=== PATIENT | male | born 1940 | race Caucasian/White ===

== ENCOUNTER 2019-04-14 17:46 | Inpatient (IN) ==
--- NOTE | 2019-04-14 18:07 | PROVIDER DOCUMENTATION ---
HPI-General Adult - General Stated Complaint: syncope, hypotension Time Seen by Provider: 04/14/19 17:55 Source: patient, EMS Allergies/Adverse Reactions: Patient Allergies Allergy/AdvReac Type Severity Reaction Status Date / Time No Known Allergies Allergy Verified 04/14/19 18:06 Home Medications: Home Medication List Medication Instructions Recorded Confirmed Last Taken Type Isosorbide Mononitrate E.r. [Imdur] 60 mg PO DAILY 07/10/13 04/14/19 07/10/13 07:00 History Ranolazine E.r. [Ranexa] 500 mg PO BID 07/10/13 04/14/19 07/10/13 07:00 History Calcitriol [Rocaltrol] 0.25 microgm PO DIRECTED 03/13/16 04/14/19 03/11/16 09:00 History Midodrine [Proamatine] 5 mg PO TID 03/13/16 04/14/19 03/13/16 09:00 History Montelukast Sodium [Singulair] 10 mg PO QHS 03/13/16 04/14/19 03/12/16 21:00 History Pantoprazole Sodium [Protonix] 40 mg PO QHS 03/13/16 04/14/19 03/12/16 21:00 History Levothyroxine [Synthroid] 50 microgm PO DAILY 04/14/19 04/14/19 Unknown History Losartan Potassium [Cozaar] 1 tab PO DAILY 04/14/19 04/14/19 Unknown History Metoprolol Succinate E.r. [Toprol 100 mg PO DAILY 04/14/19 04/14/19 Unknown History Xl] Ondansetron HCl 4 mg PO Q6H PRN PRN 04/14/19 04/14/19 Unknown History Potassium Chloride 10 meq PO DAILY 04/14/19 04/14/19 Unknown History Rosuvastatin Calcium 20 mg PO DAILY 04/14/19 04/14/19 Unknown History Torsemide [Demadex] 20 mg PO BID 04/14/19 04/14/19 Unknown History - History of Present Illness -Gen Adult Nature of Presenting Problems: Presents to the EC after syncopal episode. No family at bedside but EMS states that family told them that he was sitting in his chair and had a syncopal episode. Unknown how long this lasted for. Family told EMS that after this happened patient was not acting like himself. Patient is a vague hsitorian and states that he only had some chest pain before this incident. He does have a significant cardiac history and has had 5 CABG. [address]anner [place] Dr Weiss in . Patient was hypotensive the 70s on EMS arrival and SpO2 was in the 70s on room air and patient takes no home O2. No family at bedside at this time. Review of Systems - Adult - REVIEW OF SYSTEMS - ADULT Constitutional: reports: see HPI Eyes: reports: no symptoms reported Ears, Nose, Mouth & Throat: reports: no symptoms reported Cardiovascular: reports: see HPI, chest pain Respiratory: reports: no symptoms reported, see HPI, shortness of breath Gastrointestinal: reports: no symptoms reported Genitourinary: reports: no symptoms reported Musculoskeletal: reports: no symptoms reported Integumentary: reports: no symptoms reported Neurological: reports: see HPI, syncope Psychiatric: reports: no symptoms reported Endocrine: reports: no symptoms reported Hematologic/Lymphatic: reports: no symptoms reported Allergic/Immunologic: reports: no symptoms reported All Other Systems: Reviewed and Negative Past History - Adult - PAST MEDICAL HISTORY-ADULT Review of Records: reports: Old Records Reviewed Major Childhood Illnesses: reports: denies history Cardiovascular: reports: CHF, HTN, hyperlipidemia, MA, other (stents + CABG) Respiratory: reports: denies history Gastrointestinal: reports: denies history Obstetrical/Gynecological: reports: denies history Genitourinary: reports: denies history Musculoskeletal: reports: denies history Neurological: reports: denies history Endocrine/Immune: reports: Diabetes Other Conditions: reports: denies history - PRIOR SURGERIES/PROCEDURES Surgical/Procedure History: reports: CABG, cardiac stent - IMMUNIZATION STATUS Childhood Immunizations: See Nurse Assessment Flu Vaccine: See Nurse Assessment - FAMILY HISTORY Family History: reviewed, not pertinent Physical Exam-General - PHYSICAL EXAM-ADULT Initial Vital Signs Reviewed: Yes - CONSTITUTIONAL General Appearance: alert, mild distress - EYES Eyes: PERRL/EOMI - HEAD, EARS, NOSE, MOUTH & THROAT HENMT: normocephalic/atraumatic, moist mucous membranes - NECK Neck: supple, normal inspection - RESPIRATORY Respiratory: chest non-tender, respiratory distress (mild), decreased breath sounds (bilaterally), rales (bilateral bases), increased rate, other (pleurx catheter in place on left lower lung on anterior chest) - CARDIOVASCULAR Cardiovascular: normal peripheral pulses, regular rate, rhythm, no murmur - GASTROINTESTINAL (ABDOMEN) Abdominal Exam: normal bowel sounds, non tender, soft - MUSCULOSKELETAL Back Exam: normal inspection Extremity: normal inspection - SKIN Integumentary: warm/dry, pallor - NEUROLOGIC Neurologic: other (limited verbal responses, attempts to answer questions a ppropriately) Progress - PLAN OF CARE/RESULTS Progress/Plan/Lab Results: Orders Category Date Time Status CHEST-PORTABLE [RAD] Stat Exams 04/14/19 17:[address] HEAD W/O CONTRAST [CT] Stat Exams 04/14/19 17:55 Ordered ABG [RESP] Routine Lab 04/14/19 17:55 Ordered BLOOD CULTURE [BLDCUL] Stat Lab 04/14/19 17:55 Uncollected CBC WITH ELECTRONIC DIFF [HEME] Stat Lab 04/14/19 17:55 Uncollected CK TOTAL [CHEM] Stat Lab 04/14/19 17:55 Uncollected COMPREHENSIVE METABOLIC PANEL [CHEM] Stat Lab 04/14/19 17:55 Uncollected LACTATE, PLASMA [CHEM] Stat Lab 04/14/19 17:55 Uncollected PRO B-NATRIURETIC PEPTIDE Stat Lab 04/14/19 17:55 Uncollected TROPONIN T Stat Lab 04/14/19 17:55 Uncollected URINALYSIS W/POSS RFLX CULT [URINALYSIS] Stat Lab 04/14/19 17:55 Uncollected URINE CULTURE [RM] Stat Lab 04/14/19 17:55 Uncollected Patient signed out to Dr Kendrick pending CT Head and final dispo. Will need admission but unsure if he will require transfer to or stay at [facility]. He does have acute on chronic anemia to 8.4 with his most recent Hgb being many many motnhs ago. His occult was negative. He responded well to a small bolus of fluids initiated by EMS, however BNP is 25k so will need to be cautious. Will also hold off any transfusions at this time given that patient could be more volume overloaded. His troponin is elevated but his EKG is unchanged from 2016. The elevated trop likely 2.2 to BNP and Cr which appears to be at baseline. Given Vanc and Zosyn for PNA on XR. Dr Kendrick to reeval and finalize dispo. Result Diagrams: 04/15/19 05:38 04/15/19 05:38 - XRAY 1 XRAY Study: Chest (HEST-PORTABLE - 04/14/2019 INDICATION: syncope, hypotension COMPARISON: 12/10/2018 FINDINGS: Lung volumes are somewhat low. Stable sternotomy wires. Stable right-sided pacemaker. Heart size is top normal. Pulmonary vascularity appears normal. There is some indeterminate opacification of the left lung base representing a combination of atelectasis, infiltrate, or effusion. IMPRESSION: Left basilar airspace opacity. Electronically signed by Byron Chaidez 04/14/2019 6:37 PM) - CONSULTS/PCP/HOSPITALIST Notification #1 *Consult/PCP/Hospitalist*: d/w Dr Alexandre Time Discussed: 20:02 Consult Disposition: Admit - CHANGE OF SHIFT REPORT (ED Provider) 1 Report Given and Care Transferred to:: Dr Kendrick Time of Transfer: 19:00 Items Pending: CT/MRI Results Departure - Departure Date of Disposition Decision: 04/14/19 Time of Disposition Decision: 20:14 DIAGNOSIS: Acute anemia, Syncope, Congestive heart failure, CKD (chronic kidney disease), Elevated troponin I level, Hypotension Disposition: ADMITTED INPATIENT 09 Certified Medical Emergency: Emergent Condition: Stable - Critical Care Note This patient required my direct & personal management of CC.: Yes Total Time (mins): 65 Critical Care Statement: This patient required my direct personal management to treat or rule out processes, the absence of which, could potentiallly result in sudden, clinically significant life or limb threatening deterioration. Attestation - Physician/ MADHURI Attestation Patient care was provided by Advanced Practice Provider:: No The physician spent face to face time with patient:: Yes Advanced Practice Provider documentation review:: Supervising physician onsite and consulted in the evaluation and care of this patient. The physician did have a face to face encounter with the patient.
[2019-04-14 18:22] LABS: ALLEN TEST NO; BE 5.8 mmoll (-3.0-3.0); BLOOD TYPE ARTERIAL; HCO3-(ACT) 29.5 mmoll (20.0-26.0); O2(CT) 11.2 mL/dL (15.0-23.0); O2HB 96.1 % (95.0-99.0); PCO2(98.6) 40 mmHg (35-45); PO2(98.6) 88 mmHg (60-100); SAMPLE BLOOD; SAO2 99.3 % (95.0-100.0); THB 8.2 g/dL (11.5-17.4); pH(98.6) 7.48 (7.35-7.45)
[2019-04-14 18:23] LABS: MODALITY CANNULA
[2019-04-14 18:25] LABS: BASO# 0.01 X1000 (0.0-0.2); BASO% 0.1 % (0.0-0.8); EOS# 0.08 X1000 (0.0-0.7); EOS% 0.7 % (0.0-10.0); HEMATOCRIT 27.4 % (42.0-52.0); HEMOGLOBIN 8.4 g/dL (14.0-18.0); IMM GRAN# 0.03 X1000 (0.0-0.04); IMM GRAN% 0.3 % (0.0-0.5); LYMPH# 1.11 X1000 (1.2-3.4); LYMPH% 9.5 % (20.5-51.1); MCHC 30.7 g/dL (33-37); MCV 91.3 FL (81-99); MONO# 1.27 X1000 (0.11-0.59); MONO% 10.9 % (1.7-9.3); MPV 11.5 FL (7.4-10.4); NEUT# 9.16 X1000 (1.4-6.5); NEUT% 78.5 % (42.2-75.2); PLT 189 X1000 (130-400); RDW 17.4 % (11.5-14.5); WBC 11.66 X1000 (4.8-10.8)
--- NOTE | 2019-04-14 18:40 | Diag Imaging Result Doc PS360 ---
CHEST-PORTABLE - 04/14/2019 INDICATION: syncope, hypotension COMPARISON: 12/10/2018 FINDINGS: Lung volumes are somewhat low. Stable sternotomy wires. Stable right-sided pacemaker. Heart size is top normal. Pulmonary vascularity appears normal. There is some indeterminate opacification of the left lung base representing a combination of atelectasis, infiltrate, or effusion. IMPRESSION: Left basilar airspace opacity. Electronically signed by Byron Chaidez 04/14/2019 6:37 PM
[2019-04-14 18:44] LABS: ALB/GLOB RATIO 0.8; ALBUMIN 2.7 g/dL (3.5-5.0); CALCIUM 8.4 mg/dL (8.8-10.2); CREATININE 2.2 mg/dL (0.7-1.2); TOTAL BILIRUBIN 1.09 mg/dL (0.20-1.00); TOTAL PROTEIN 6.1 g/dL (6.3-8.3)
[2019-04-14 18:52] LABS: URINE SOURCE CATH
[2019-04-14 19:00] LABS: BILIRUBIN URINE NEGATIVE (NEGATIVE); BLOOD URINE NEGATIVE (NEGATIVE); COLOR YELLOW; GLUCOSE URINE NEGATIVE (NEGATIVE); KETONE URINE NEGATIVE (NEGATIVE); LEUKOCYTES URINE NEGATIVE (NEGATIVE); NITRITE URINE NEGATIVE (NEGATIVE); PH URINE 5.5; PROTEIN URINE 30 mg/dL (NEGATIVE); SP GRAVITY URINE 1.019; TURBIDITY URINE HAZY (CLEAR); UROBILINOGEN URINE 4 mg/dL (NORMAL)
[2019-04-14] MEDS ORDERED: ZOSYN 3.375 GM in NS 50 ML IV SCH (19:00)
[2019-04-14] MEDS ORDERED: VANCOMYCIN 1 GM/NS 1 GM/250 ML IVPB IV SCH (19:00)
[2019-04-14 19:02] LABS: UR EPITHELIAL CELLS <10 /HPF (<10); URINE BACTERIA NEGATIVE /HPF; URINE RBC <10 /HPF (<10); URINE WBC <10 /HPF (<10)
--- NOTE | 2019-04-14 19:45 | Diag Imaging Result Doc PS360 ---
CT HEAD W/O CONTRAST - 04/14/2019 INDICATION: syncope, hypotension COMPARISON: None FINDINGS: There is moderate diffuse cerebral atrophy. There is advanced cerebral white matter chronic microvascular ischemia. No intracranial mass or hemorrhage. The skull is intact. The sinuses, mastoids, and middle ears are clear. There is advanced calcified vascular disease diffusely. IMPRESSION: No acute process. This exam was performed using automated exposure control, adjustment of mA or kV according to patient size, and/or use of iterative reconstruction technique Electronically signed by Byron Chaidez 04/14/2019 7:43 PM
[2019-04-14] MEDS ORDERED: ZOFRAN PO PRN (21:59)
[2019-04-14] MEDS ORDERED: ZOFRAN IV PRN (21:59)
[2019-04-14] MEDS: DOXYCYCLINE PO SCH (22:14)
[2019-04-14] MEDS: RANEXA PO SCH (22:14)
[2019-04-14] MEDS: PROTONIX PO SCH (22:14)
[2019-04-14] MEDS: TYLENOL PO PRN (22:14)
[2019-04-14] MEDS: DEMADEX PO SCH (22:14)
[2019-04-14] MEDS: ASPIRIN PO SCH (22:14)
[2019-04-14] MEDS: ROCEPHIN 1 GM in NS 50 ML IV SCH (22:15)
[2019-04-14] MEDS: LOVENOX SUBQ SCH (22:15)
--- NOTE | 2019-04-14 22:21 | HISTORY AND PHYSICAL ---
REASON FOR ADMISSION: Frequent passing out spells today. Mr. Oren Amaya is an 79-year-old male with past medical history of carotid artery disease status post a total of 13 stents, CABG, a defibrillator placement, total hip replacement, pacemaker insertion, also has a history of type 2 diabetes and systolic heart failure. He also has a history of chronic kidney disease stage 3. Patient comes in today reluctantly at the behest of his daughter and after having several complete and also incomplete spells while at home today totaling about 3 to 4 episodes passing out. informed me that this has been an ongoing problem for the last 4 years. She reports that he has been having frequent spells of nearly passing out on a few occasions completely passing out over the last 1 month. She states on few occasions have called EMS and the patient adamantly refused to go to the ER. Earlier today he was at home and down he slumped and almost passed out only to quickly recuperate. For the 3rd time this happened the patient was sitting his walker and again slumped and was transiently out for a few seconds. Also on that time started coughing and had a low-grade temperature of 99 degrees . The patient has a longstanding history of chronic dyspnea especially with exertion and reports over the last 2 days his dyspnea with exertion has gotten slightly worse. He also has a history of chronic chest pain at the previous site where he had defibrillator and intermittent with no specific aggravating or relieving factors and states that neither the frequency, duration or intensity has worsened. reports that patient has chronic orthopnea but no PND. The patient denies any palpitations, does admit to having some nausea occasionally. No vomiting, diarrhea or blood loss recently. REVIEW OF SYSTEMS: Notable for chronic dysuria, hesitancy, nocturia, patient denies any abdominal pains whatsoever. SURGICAL HISTORY: See above. PAST MEDICAL HISTORY: See above. FAMILY HISTORY: Notable for heart disease in both parents no diabetes. SOCIAL HISTORY: Does not smoke, drink or use drugs, lives with . ALLERGIES: No allergies. HOME MEDICATIONS: Protonix 40 mg at bedtime, Singulair 10 mg daily, Cozaar 100 mg daily, torsemide 20 mg b.i.d., Imdur 60 mg daily, Zofran 4 mg q.6 p.r.n., potassium chloride 10 mEq daily, Ranexa 500 mg b.i.d., midodrine 5 mg t.i.d., 0.25 mg daily, Crestor 20 mg daily, Synthroid 50 mcg daily, Toprol XL 100 mg daily. LABORATORY WORK: White count 12,000, hemoglobin and hematocrit 8 and 24, platelets 189,000 with 78% neutrophils. Sodium 134, BUN 46, creatinine 2.2, glucose 215, calcium 8.4, troponin 0.201 with a proBNP of 25,000, albumin 2.5. Urinalysis only 30 mg of protein. Blood gas pH 7.48, pCO2 40, PO2 80 this was done on 4 L. Chest film showed left lower lobe infiltrate. CT head showed no acute cardiopulmonary process. EKG is not available for review at this time and I will order it now. PHYSICAL EXAMINATION: VITAL SIGNS: Blood pressure is 109/51, heart rate is 60, respiratory 20, temperature is 98.1 is 100% on 4 L. He is a elderly obese man who is not in acute distress laying comfortably on stretcher. He is alert and oriented to the time normal mood and affect. Head is normocephalic, atraumatic. PERRLA. EOMI. He is anicteric, not pale. Cranial nerves 2 through 12 are intact. ENT exam is grossly normal. Some cyanosis. NECK: Supple. No JVD or hepatojugular reflux noted, no bruit. CHEST: Surprisingly clear to auscultation with decreased entry in the bases. CARDIOVASCULAR: First and sounds heard. No gallops, murmurs, rubs, regular. ABDOMEN: Protuberant, soft, nontender. Bowel sounds are hypoactive. RECTAL: Deferred at this time. EXTREMITIES: 2+ pitting edema in his lower extremities. Distal pulse volumes are slightly diminished in all extremities more so on the lower extremities. No clubbing or peripheral cyanosis. NEURO: No gross focal deficits, no asterixis. SKIN: Intact no breakdown, lesion, erythema, skin exam is grossly normal. ASSESSMENT: 1. Recurrent syncope/presyncopal episodes. Very likely related to hypotension as per 's admission later. She reports that most of the time he has had these spells with blood pressure upper numbers usually lower 90s and 80s. This can also be due to underlying ischemia. 2. Left lower lobe pneumonia. 3. Coronary artery disease. 4. Chronic systolic heart failure. 5. Hypertensive heart and kidney disease. 6. Chronic kidney disease stage 4. 7. Type 2 diabetes probably uncontrolled. 8. Hyperlipidemia. 9. Hypothyroidism. PLAN: Strongly recommend modification of the doses of his medications i.e. I have taken liberty of cutting down losartan to 50 mg daily and he may require a lower dose of torsemide maybe to once daily as opposed to twice daily. The fact that the patient is taking midodrine suggests to me that he tends to run low blood pressure and I do think that cutting back some of his blood medications that can affect his blood pressure may be the most reasonable step especially since he is having recurrent spells of presyncope and syncope. I will defer to Dr. Efrain Madrigal to decide if he wants to pursue echocardiogram being that the patient according to the family has seen Dr. Weiss frequently. Continue serial cardiac enzymes. Due to the fact the patient has not seen his primary care physician in a while I will order some basic labs, TSH, A1c, lipid panel, PSA will also be ordered due to the fact patient has frequent nocturia. In addition to this start patient alpha blockers I will leave to Dr. Efrain Madrigal. Anemia workup was also ordered and amongst other things. Also start patient on baby aspirin since he has strong history of cardiac disease. cc: Ambrose Madrigal MD [facility] DIVISIONConrad
--- NOTE | 2019-04-14 22:34 | EKG Report ---
Test Performed on : 04/14/2019 9:02:29 PM Test Reason : syncope Blood Pressure : / mmHG Vent. Rate : 060 BPM Atrial Rate : 060 BPM P-R Int : 130 ms QRS Dur : 182 ms QT Int : 622 ms P-R-T Axes : 083 264 145 degrees QTc Int : 622 ms Atrial-paced rhythm Right bundle branch block Inferior infarct (cited on or before 14-APR-2019) Anterior infarct (cited on or before 14-APR-2019) T wave abnormality, consider lateral ischemia Abnormal ECG When compared with ECG of 14-APR-2019 17:53, (Unconfirmed) Electronic atrial pacemaker has replaced Sinus rhythm. Serial changes of Anterior infarct present Unconfirmed Result
[2019-04-14 23:18] LABS: RETIC% 2.24 % (0.8-2.1); RETIC-HE 24.3 PG (28.2-36.6)
[2019-04-15 06:08] LABS: BASO# 0.01 X1000 (0.0-0.2); BASO% 0.1 % (0.0-0.8); EOS% 4.4 % (0.0-10.0); HEMATOCRIT 28.1 % (42.0-52.0); HEMOGLOBIN 8.6 g/dL (14.0-18.0); IMM GRAN# 0.02 X1000 (0.0-0.04); IMM GRAN% 0.2 % (0.0-0.5); LYMPH# 0.89 X1000 (1.2-3.4); LYMPH% 9.7 % (20.5-51.1); MCH 27.9 PG (27-31); MCHC 30.6 g/dL (33-37); MCV 91.2 FL (81-99); MONO# 0.96 X1000 (0.11-0.59); MONO% 10.5 % (1.7-9.3); MPV 11.9 FL (7.4-10.4); NEUT# 6.89 X1000 (1.4-6.5); NEUT% 75.1 % (42.2-75.2); PLT 186 X1000 (130-400); RBC 3.08 XMIL (4.7-6.1); RDW 17.2 % (11.5-14.5); WBC 9.17 X1000 (4.8-10.8)
[2019-04-15] MEDS: SYNTHROID PO SCH (06:17)
[2019-04-15 06:19] LABS: HEMOGLOBIN A1C 5.4 % (4.8-6.0)
[2019-04-15 06:34] LABS: ESTIMATED GFR 29
[2019-04-15 06:41] LABS: AGAP 14; BUN 52 mg/dL (8-22); CALCIUM 8.6 mg/dL (8.8-10.2); CHLORIDE 94 mmol/L (98-107); CHOLESTEROL 83 mg/dL (0-200); COSMO 289; CREATININE 2.2 mg/dL (0.7-1.2); GLUCOSE 159 mg/dL (70-104); HDL 32 mg/dL (35-55); LDL 40 mg/dL; PHOSPHORUS 3.9 mg/dL (2.7-4.5); POTASSIUM 4.1 mmol/L (3.5-5.1); SODIUM 136 mmol/L (136-145); TCO2 28 mmol/L (25-35); TOTAL IRON 18 ug/dL (53-167); TRIGLYCERIDES 55 mg/dL (39-160); VLDL 11 mg/dL
[2019-04-15 06:52] LABS: PSA SCREEN 0.55 ng/mL (0.00-6.22); TSH 1.31 uIUmL (0.27-4.20)
--- NOTE | 2019-04-15 07:52 | EKG Report ---
Test Performed on : 04/14/2019 5:53:43 PM Test Reason : ED. NO EKG ORDER FOR MUSE Blood Pressure : / mmHG Vent. Rate : 061 BPM Atrial Rate : 061 BPM P-R Int : 128 ms QRS Dur : 184 ms QT Int : 614 ms P-R-T Axes : 000 -88 149 degrees QTc Int : 618 ms Normal sinus rhythm. Left axis deviation Right bundle branch block Inferior infarct , age undetermined Anterolateral infarct , age undetermined Abnormal ECG When compared with ECG of 13-MAR-2016 14:10, Sinus rhythm. has replaced Electronic ventricular pacemaker Unconfirmed Result
[2019-04-15] MEDS: DOXYCYCLINE PO SCH ×2 (09:24→20:32)
[2019-04-15] MEDS: ASPIRIN PO SCH (09:24)
[2019-04-15] MEDS: PROAMATINE PO SCH ×4 (09:24→17:29)
[2019-04-15] MEDS: COZAAR PO SCH (09:24)
[2019-04-15] MEDS: TOPROL XL PO SCH ×2 (09:24→20:32)
[2019-04-15] MEDS: CRESTOR PO SCH (09:24)
[2019-04-15] MEDS: KLOR-CON PO SCH (09:24)
[2019-04-15] MEDS: DEMADEX PO SCH (09:24)
[2019-04-15] MEDS: RANEXA PO SCH ×2 (09:25→20:31)
[2019-04-15] MEDS: IMDUR PO SCH (09:25)
[2019-04-15] MEDS: TYLENOL PO PRN ×2 (11:45→18:33)
--- NOTE | 2019-04-15 13:21 | PROGRESS NOTE ---
DATE: 04/15/2019 SUBJECTIVE: Mr. Amaya continues with persistent syncopal episodes. He feels dizzy with changes of position; he passes out, and loses consciousness. He has had persistent orthostatic hypotension due to dysautonomia and has been taking low-dose midodrine 5 mg t.i.d. He denies any chest pain, palpitations, or anginal equivalents. He does have a history of chronic congestive heart failure secondary to systolic dysfunction. He had an echocardiogram performed in [place] approximately 2 months ago and I am trying to get a copy of those records, Mr. Amaya could not remember what his ejection fraction was. He sleeps in a recliner. He has increasing peripheral edema. He has mild dyspnea with exertion. He wears O2 while sleeping. 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 His most recent hemoglobin A1c was 5.4. OBJECTIVE: Vital Signs: Temperature 97.8 degrees, pulse 61, respirations 20, BP 138/67. Cardiovascular: Regular rate and rhythm. Lungs: Faint crackles in the bases bilaterally. Abdomen: Soft, nontender with active bowel sounds. Extremities: 1+ pitting edema in the lower extremities bilaterally. ASSESSMENT AND PLAN: 1. Syncopal episode. He remains in normal sinus rhythm. He does have chronic orthostatic hypotension secondary to dysautonomia. We will increase the midodrine to 10 mg t.i.d. I will continue metoprolol but reduce the dosage of losartan to 50 mg daily. Unfortunately, he will always have orthostatic blood pressure due to dysautonomia. He requires beta blockers and angiotensin receptor blockers because of his underlying heart disease and congestive heart failure. Each of those medicines can drop his blood pressure. I am hoping by increasing the midodrine and reducing the dosage of the losartan that we can minimize the number of episodes of hypotension. 2. Chronic respiratory failure with hypoxia secondary to chronic congestive heart failure secondary to systolic dysfunction. We will continue a salt and fluid restricted diet. We will continue gentle diuresis. We will follow strict Intake's and Output's. 3. 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 We will continue pattern sugars and a Humulin R sliding scale. I wonder if he is having periods of hypoglycemia with a hemoglobin A1c of 5.4. We will reduce the dosage of insulin as indicated. 4. General debility. He is at a high fall risk because of orthostatic hypotension and a peripheral neuropathy. I will consult Physical therapy and Occupational therapy. I wonder if he would be a candidate for in-house physical therapy at [facility] in [place]. I believe that he potentially would benefit from a motorized wheelchair or scooter given the chronic respiratory failure, chronic congestive heart failure, neuropathy, and frequent falls. cc: John Madrigal MD
[2019-04-15] MEDS: ROCALTROL PO SCH (14:10)
[2019-04-15] MEDS: HUMULIN 70/30 SUBQ SCH (17:33)
[2019-04-15] MEDS: ROCEPHIN 1 GM in NS 50 ML IV SCH (20:31)
[2019-04-15] MEDS: LOVENOX SUBQ SCH (20:31)
[2019-04-15] MEDS: PROTONIX PO SCH (20:32)
[2019-04-16] MEDS: SYNTHROID PO SCH (06:12)
[2019-04-16] MEDS: TOPROL XL PO SCH ×2 (09:20→20:22)
[2019-04-16] MEDS: CRESTOR PO SCH (09:20)
[2019-04-16] MEDS: DEMADEX PO SCH (09:21)
[2019-04-16] MEDS: RANEXA PO SCH ×2 (09:21→20:22)
[2019-04-16] MEDS: DOXYCYCLINE PO SCH (09:21)
[2019-04-16] MEDS: KLOR-CON PO SCH (09:21)
[2019-04-16] MEDS: PROAMATINE PO SCH ×3 (09:21→17:36)
[2019-04-16] MEDS: ASPIRIN PO SCH (09:21)
[2019-04-16] MEDS: IMDUR PO SCH (09:21)
[2019-04-16] MEDS: COZAAR PO SCH (09:22)
[2019-04-16] MEDS: HUMULIN 70/30 SUBQ SCH ×2 (09:36→17:36)
--- NOTE | 2019-04-16 10:27 | Diag Imaging Result Doc PS360 ---
EXAM: CHEST-PORTABLE 04/16/2019 HISTORY: CHF TECHNIQUE: AP upright at 1018 COMMENT: There is cardiomegaly. There is ill-defined opacity in the right base and throughout much of the left lung with obscuration of the left heart border and the left hemidiaphragm. This is somewhat worse than on 04/14/2019 particularly with respect to the left upper lobe. IMPRESSION: Worsening pulmonary edema plus minus pneumonia. Electronically signed by Orlando Gracia 04/16/2019 10:24 AM
[2019-04-16 10:49] LABS: BASO# 0.01 X1000 (0.0-0.2); BASO% 0.1 % (0.0-0.8); EOS# 0.29 X1000 (0.0-0.7); EOS% 3.2 % (0.0-10.0); HEMATOCRIT 27.6 % (42.0-52.0); HEMOGLOBIN 8.4 g/dL (14.0-18.0); LYMPH# 0.73 X1000 (1.2-3.4); LYMPH% 7.9 % (20.5-51.1); MCH 27.5 PG (27-31); MCHC 30.4 g/dL (33-37); MCV 90.2 FL (81-99); MONO# 1.18 X1000 (0.11-0.59); MONO% 12.8 % (1.7-9.3); MPV 11.2 FL (7.4-10.4); NEUT# 6.99 X1000 (1.4-6.5); PLT 242 X1000 (130-400); RBC 3.06 XMIL (4.7-6.1); RDW 16.8 % (11.5-14.5)
[2019-04-16 11:34] LABS: CALCIUM 8.4 mg/dL (8.8-10.2); CREATININE 1.9 mg/dL (0.7-1.2); POTASSIUM 4.1 mmol/L (3.5-5.1)
[2019-04-16] MEDS: LEVAQUIN 250 MG/D5W 250 MG/50 ML IVPB IV SCH (12:14)
--- NOTE | 2019-04-16 13:32 | PROGRESS NOTE ---
DATE: 04/16/2019 SUBJECTIVE: Mr. Amaya was admitted to [facility] with a syncopal episode. He had been having frequent episodes of orthostatic hypotension. He is taking losartan and metoprolol for underlying heart disease and congestive heart failure, as well as midodrine to prevent the orthostasis. Yesterday, we increased the midodrine to 10 mg t.i.d., and reduced the dosage of losartan to 50 mg daily. He is no longer having any episodes of orthostasis when his blood pressure is checked sitting and standing. He seems more confused this morning. He was oriented to name. 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 He could identify his daughter. He knew me. His CT scan on admission showed diffuse white matter changes. He is with a complaint of increasing cough and mild pleuritic chest pain. O2 saturations are good on supplemental O2. Chest x-ray shows increasing infiltrates. OBJECTIVE: Vital Signs: Temperature 98.6 degrees, pulse 60, respirations 16, BP 132/49. CV: Regular rate and rhythm. Lungs: Crackles in the bases bilaterally. Abdomen: Soft, nontender, with active bowel sounds. No hepatosplenomegaly. No abdominal bruits. Extremities: Trace ankle edema. LABORATORY DATA: A CBC demonstrated a white count of 9.2, hemoglobin 8.4, hematocrit 27.6, and a platelet count of 242,000. Electrolytes demonstrated the following: Sodium 132, potassium 4.1, chloride 93, BUN 48, creatinine 1.9, glucose 124. ASSESSMENT AND PLAN: 1. Metabolic encephalopathy. I suspect that there is some mild degree of mild cognitive impairment. I suspect that the encephalopathy is due to the underlying community-acquired pneumonia. I have switched him to intravenous Levaquin, and will add DuoNeb nebulizer treatments. We will continue intravenous antibiotics pending blood cultures. 2. Syncopal episode secondary to orthostatic hypotension. I suspect that the orthostasis was a combination of blood pressure medications, as well as inadequate dose of midodrine. We will continue metoprolol, low-dose losartan, and midodrine 10 mg three times daily. We will monitor his blood pressure closely. 3. Chronic renal insufficiency. I have held his evening dosage of torsemide. His creatinine has dropped from 2.2 to 1.9. 4. General debility. We will continue physical therapy and occupational therapy. It is my hope that once he is stabilized, to transfer him to [facility]. cc: John Madrigal MD
[2019-04-16] MEDS: PROTONIX PO SCH (20:22)
[2019-04-16] MEDS: LOVENOX SUBQ SCH (20:22)
[2019-04-17] MEDS: SYNTHROID PO SCH (06:21)
[2019-04-17] MEDS ORDERED: D50W SYRINGE IV ONE (06:42)
[2019-04-17] MEDS: KLOR-CON PO SCH (09:20)
[2019-04-17] MEDS: CRESTOR PO SCH (09:20)
[2019-04-17] MEDS: TOPROL XL PO SCH ×2 (09:20→20:34)
[2019-04-17] MEDS: IMDUR PO SCH (09:20)
[2019-04-17] MEDS: DEMADEX PO SCH (09:21)
[2019-04-17] MEDS: COZAAR PO SCH (09:21)
[2019-04-17] MEDS: RANEXA PO SCH ×2 (09:21→20:33)
[2019-04-17] MEDS: ASPIRIN PO SCH (09:21)
[2019-04-17] MEDS: HUMULIN 70/30 SUBQ SCH (09:21)
[2019-04-17] MEDS: PROAMATINE PO SCH ×3 (09:22→17:18)
[2019-04-17] MEDS: LEVAQUIN 250 MG/D5W 250 MG/50 ML IVPB IV SCH (11:19)
[2019-04-17] MEDS: ROCALTROL PO SCH (12:10)
--- NOTE | 2019-04-17 13:44 | PROGRESS NOTE ---
DATE: 04/17/2019 SUBJECTIVE: Patient's chart was reviewed. In summary, patient was admitted on 04/14/2019 secondary to recurrent syncopal/presyncopal episodes and a left lower lobe pneumonia. The patient's medications were adjusted. He was started on IV levofloxacin therapy. Yesterday, upon Dr. Madrigal arrival, patient was noted to have increasing confusion. Antibiotics were adjusted. DuoNeb was added. Overnight, patient had several episodes of hypoglycemia. This was treated accordingly. Upon my arrival today, patient was resting in bed. He was arousable, but drifted back to sleep. Upon my questioning, he was alert and oriented to person, place, and situation. There has been no evidence of fevers, chills, nausea, vomiting, shortness of breath, or chest discomfort over the course of the last 24 hours. OBJECTIVE: Vital signs: T-max 98.1 degrees, heart rate 59 to 89, respirations 17 to 21, blood pressure 99 to 171/46 to 60. General: Chronically ill appearing, no acute distress. Cardiovascular: Regular rate and rhythm. No significant murmurs, rubs, or gallops. Pulmonary: Crackles at the left base. Adequate air movement. Abdomen: Soft, nontender, nondistended. Positive bowel sounds. Extremities: Moves all extremities well. No significant clubbing or cyanosis. There is 1+ lower extremity edema bilaterally. Dermatologic: No evidence of rash. LABORATORY DATA: None. ASSESSMENT AND PLAN: 1. Metabolic encephalopathy/alteration of mental status-I expect this was exacerbated by his underlying community-acquired pneumonia. With antibiotic intervention and aggressive management, his mentation appears to be approaching baseline. He is somnolent today, but likely secondary to being up a vast majority of the night treating his underlying hypoglycemia. He answers questions appropriately. We will continue supportive care. 2. Syncopal episodes secondary to orthostatic hypotension-patient's midodrine has been increased. His losartan has been decreased. At this point, although there risk both ways, I would prefer to allow blood pressures to remain slightly elevated in the setting of his labile blood pressure and possible underlying autonomic dysfunction. We will continue his current medical regimen for now. We will follow this. 3. Chronic kidney disease-the patient's creatinine upon admission was 2.2. Yesterday, it had decreased to 1.9. We will continue his current medical regimen. We will recheck labs in the morning. 4. Profound weakness-the patient likely will benefit from rehabilitation at discharge. Once his condition has improved, we will plan for this transfer. 5. Diabetes with episodes of hypoglycemia-because of patient's decreased p.o. intake, we will discontinue his NPH insulin. We will place patient on sliding scale insulin. We will follow blood sugars closely. 6. Hyperlipidemia-we will continue patient on rosuvastatin therapy. 7. Reflux disease-we will continue patient on pantoprazole therapy. 8. Coronary artery disease-we will continue patient on his optimized medical regimen. We will remain aware in the setting of medication adjustments. 9. Disposition. At this point, patient continues to require residential care in a hospital setting. We will plan discharge to rehabilitation once appropriate. cc: MD John Ware MD
[2019-04-17] MEDS: TYLENOL PO PRN (15:49)
[2019-04-17] MEDS: HUMALOG SUBQ SCH ×2 (17:14→21:37)
[2019-04-17] MEDS: LOVENOX SUBQ SCH (20:33)
[2019-04-17] MEDS: PROTONIX PO SCH (20:33)
[2019-04-18] MEDS: HUMALOG SUBQ SCH ×4 (06:11→21:02)
[2019-04-18] MEDS: SYNTHROID PO SCH (06:30)
--- NOTE | 2019-04-18 07:08 | Diag Imaging Result Doc PS360 ---
EXAM: CHEST-1 VIEW 04/18/2019 HISTORY: Pneumonia TECHNIQUE: AP portable at 0531 COMMENT: There is increased opacification of the left lung compared to 04/16/2019. The heart size remains slightly enlarged. IMPRESSION: Worsening left upper and lower lobe pneumonia. Electronically signed by Orlando Gracia 04/18/2019 7:06 AM
[2019-04-18] MEDS: ASPIRIN PO SCH (08:19)
[2019-04-18] MEDS: IMDUR PO SCH (08:19)
[2019-04-18] MEDS: COZAAR PO SCH (08:19)
[2019-04-18] MEDS: DEMADEX PO SCH (08:19)
[2019-04-18] MEDS: TOPROL XL PO SCH ×2 (08:19→20:59)
[2019-04-18] MEDS: CRESTOR PO SCH (08:20)
[2019-04-18] MEDS: PROAMATINE PO SCH ×3 (08:20→16:31)
[2019-04-18] MEDS: KLOR-CON PO SCH (08:20)
[2019-04-18] MEDS: RANEXA PO SCH ×2 (08:20→21:00)
[2019-04-18] MEDS: LEVAQUIN 250 MG/D5W 250 MG/50 ML IVPB IV SCH ×2 (10:43→11:18)
--- NOTE | 2019-04-18 11:38 | PROGRESS NOTE ---
DATE: 04/18/2019 SUBJECTIVE: Mr. Amaya seems much more alert and interactive this morning. He was sitting up in bed eating breakfast. He was alert and oriented to name, place, and time. He answered questions appropriately. He was back to his baseline neurologically. He continues with a persistent cough productive of clear to yellowish sputum and mild pleuritic chest pain. He has been taking Levaquin for an underlying community-acquired pneumonia. He is not running any fever. He is not having any hard shaking rigors. His chest x-ray this morning demonstrated persistent infiltrates in the left upper and lower lobe on the left. His blood pressure has stabilized. He is no longer orthostatic since increasing the midodrine and reducing the dosage of losartan. Blood sugars are ranging from 109 to 182. PHYSICAL EXAMINATION: Vital Signs: Temperature 98 degrees, pulse 67, respirations 20, BP 134/50. Cardiovascular: Regular rate and rhythm. Lungs: Crackles in the left base. Abdomen: Soft and nontender with active bowel sounds. Extremities: There is 1+ edema bilaterally. ASSESSMENT AND PLAN: 1. Metabolic encephalopathy secondary to community-acquired pneumonia. Clinically, he is much better. He is essentially back to his baseline neurologically today. We will continue nebulizer treatments and broad-spectrum antibiotics for the underlying pneumonia. 2. Syncopal episode secondary to orthostatic hypertension. Since increasing the midodrine and decreasing the losartan, he has had no further episodes of orthostasis. We will continue his current regimen of medications. 3. Physical debility. He will continue physical therapy. I believe that he would benefit from in-house rehabilitation. 4. 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 We will continue to hold the NPH insulin and continue pattern sugars and a Humulin R sliding scale. I will resume lower dosages of insulin once he is eating more consistently. cc: John Madrigal MD
[2019-04-18] MEDS: PROTONIX PO SCH (21:00)
[2019-04-18] MEDS: LOVENOX SUBQ SCH (21:00)
[2019-04-18] MEDS: TYLENOL PO PRN (21:43)
[2019-04-19] MEDS: TYLENOL PO PRN ×3 (04:04→20:35)
[2019-04-19] MEDS: HUMALOG SUBQ SCH ×4 (06:14→20:36)
[2019-04-19] MEDS: CRESTOR PO SCH ×2 (07:55→10:42)
[2019-04-19] MEDS: PROAMATINE PO SCH ×4 (07:55→16:32)
[2019-04-19] MEDS: TOPROL XL PO SCH ×3 (07:56→20:35)
[2019-04-19] MEDS: ASPIRIN PO SCH ×2 (07:56→10:41)
[2019-04-19] MEDS: COZAAR PO SCH ×2 (07:56→10:42)
[2019-04-19] MEDS: SYNTHROID PO SCH (07:56)
[2019-04-19] MEDS: DEMADEX PO SCH ×3 (07:56→20:35)
[2019-04-19] MEDS: RANEXA PO SCH ×3 (07:56→20:35)
[2019-04-19] MEDS: KLOR-CON PO SCH ×2 (07:56→10:43)
[2019-04-19] MEDS: IMDUR PO SCH ×2 (07:56→10:43)
--- NOTE | 2019-04-19 08:09 | Diag Imaging Result Doc PS360 ---
EXAM: CHEST-PORTABLE INDICATION: pneumonia TECHNIQUE: One view COMPARISON: 04/18/2019 FINDINGS: Airspace consolidations in the left mid and lower lung zone are essentially stable given slight differences in exposure. No new consolidations are identified. Cardiac silhouette is stable. IMPRESSION: Essentially stable chest. Electronically signed by Lyndon Marx 04/19/2019 8:07 AM
--- NOTE | 2019-04-19 08:51 | PROGRESS NOTE ---
DATE: 04/19/2019 Mr. Amaya is awake and easily arousable. He is alert and oriented to name, place, and time. He answers questions appropriately. He is breathing comfortably. O2 saturations are ranging from 98 to 100 percent on 4 L of O2. He normally wears 2.5 L of O2 per nasal cannula continuously. He continues with an intermittent cough productive of clear to yellowish sputum. Chest x-ray from this morning demonstrated stable infiltrates. No new consolidations were noted. He has a history of type 2 insulin-dependent diabetes mellitus complicated by polyneuropathy. Blood sugars are ranging from 130 to 196. His most recent hemoglobin A1c was 5.4. OBJECTIVE: Vital Signs: Temperature 97.4 degrees, pulse 59, respirations 142/51. CV: Regular rate and rhythm. Lungs: Crackles in the left base. Abdomen: Soft, nontender with active bowel sounds. Extremities: Trace ankle edema. ASSESSMENT AND PLAN: 1. Chronic respiratory failure with hypoxia with community-acquired pneumonia. Clinically, he continues to improve. Chest x-ray demonstrates stability of the infiltrates. We will continue DuoNeb nebulizer treatments and intravenous Levaquin. 2. Type 2 insulin-dependent diabetes mellitus. He normally takes Novolin 70/30 15 units in the morning and 30 units at night. He was having episodes of hypoglycemia. I am going to resume lower doses of Novolin 70/30, 10 units subcutaneously b.i.d. 3. General debility. We will continue physical therapy. Hopefully, he will be able to be transferred to [facility] in order to undergo rehab the first of the week. cc: John Madrigal MD
[2019-04-19] MEDS: ROCALTROL PO SCH (12:04)
[2019-04-19] MEDS: LEVAQUIN 250 MG/D5W 250 MG/50 ML IVPB IV SCH (12:04)
[2019-04-19] MEDS: NOVOLOG MIX 70/30 SUBQ SCH (17:08)
[2019-04-19] MEDS: PROTONIX PO SCH (20:35)
[2019-04-19] MEDS: LOVENOX SUBQ SCH (20:36)
[2019-04-20] MEDS: SYNTHROID PO SCH (06:37)
[2019-04-20] MEDS: HUMALOG SUBQ SCH ×4 (06:37→22:52)
[2019-04-20] MEDS: NOVOLOG MIX 70/30 SUBQ SCH ×2 (06:37→17:09)
[2019-04-20] MEDS: TYLENOL PO PRN ×2 (06:42→22:58)
[2019-04-20] MEDS: CRESTOR PO SCH (08:44)
[2019-04-20] MEDS: IMDUR PO SCH (08:44)
[2019-04-20] MEDS: COZAAR PO SCH (08:44)
[2019-04-20] MEDS: ASPIRIN PO SCH (08:44)
[2019-04-20] MEDS: DEMADEX PO SCH ×2 (08:44→22:58)
[2019-04-20] MEDS: PROAMATINE PO SCH ×3 (08:44→17:08)
[2019-04-20] MEDS: RANEXA PO SCH ×2 (08:44→22:58)
[2019-04-20] MEDS: TOPROL XL PO SCH ×2 (08:44→22:58)
[2019-04-20] MEDS: KLOR-CON PO SCH (08:45)
--- NOTE | 2019-04-20 08:48 | PROGRESS NOTE ---
DATE: 04/20/2019 SUBJECTIVE: Mr. Amaya has a history of type 2 insulin-dependent diabetes mellitus complicated by polyneuropathy. Blood sugars are ranging from 118 to 221. He has polyuria and polydipsia. He has chronic respiratory failure with hypoxia. He is back down to 2.5 L of O2 per nasal cannula continuously, which is the amount of oxygen he wears at home. He has a minimal cough, but denies any pleuritic chest pain or worsening shortness of breath O2 saturations are ranging from 98 to 100 percent on 2.5 L of O2. His most recent chest x-ray showed improvement in the infiltrate. OBJECTIVE: Vital Signs: Temperature 97.8 degrees, pulse 60, respirations 20, BP 116/44. CV: Regular rate and rhythm. Lungs: Faint crackles in the left base. Abdomen: Soft, nontender with active bowel sounds. Extremities: Without edema. ASSESSMENT AND PLAN: 1. Chronic respiratory failure with hypoxia on home oxygen with community-acquired pneumonia. Clinically he continues to improve. We will continue DuoNeb nebulizer treatments, as well as intravenous Levaquin. 2. 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 Sugars are fluctuating a little bit. We will continue pattern sugars, Humulin R sliding scale, 1800 calorie [place] [employer] diet, and I will increase the dosage of NovoLog 70/30 to 15 units subcutaneously twice daily with meals. 3. General debility. We will continue physical therapy. I anticipate placement in rehabilitation the first of the week. cc: John Madrigal MD
[2019-04-20] MEDS: LEVAQUIN 250 MG/D5W 250 MG/50 ML IVPB IV SCH (12:39)
[2019-04-20] MEDS: PROTONIX PO SCH (22:58)
[2019-04-20] MEDS: LOVENOX SUBQ SCH (23:00)
[2019-04-21] MEDS: SYNTHROID PO SCH (06:37)
[2019-04-21] MEDS: NOVOLOG MIX 70/30 SUBQ SCH ×2 (06:37→16:54)
[2019-04-21] MEDS: HUMALOG SUBQ SCH ×4 (07:23→20:40)
[2019-04-21] MEDS: COZAAR PO SCH (08:08)
[2019-04-21] MEDS: IMDUR PO SCH (08:08)
[2019-04-21] MEDS: CRESTOR PO SCH (08:08)
[2019-04-21] MEDS: PROAMATINE PO SCH ×3 (08:08→16:54)
[2019-04-21] MEDS: RANEXA PO SCH ×2 (08:08→20:35)
[2019-04-21] MEDS: KLOR-CON PO SCH (08:08)
[2019-04-21] MEDS: DEMADEX PO SCH ×2 (08:08→20:35)
[2019-04-21] MEDS: TOPROL XL PO SCH ×2 (08:08→20:35)
[2019-04-21] MEDS: ASPIRIN PO SCH (08:08)
--- NOTE | 2019-04-21 09:07 | PROGRESS NOTE ---
DATE: 04/21/2019 Mr. Amaya has a history of chronic respiratory failure. He is breathing comfortably on 2.5 L of O2. O2 saturations are ranging from 99 to 100 percent. His most recent chest x-ray showed improvement in the left lower lobe infiltrate. His cough has largely resolved. He no longer has any pleuritic chest pain. He is on intravenous Levaquin. Blood pressure is trending upward. Systolic blood pressures have been in the 170s and 180s. He denies any chest pain, palpitations, or anginal equivalents. PHYSICAL EXAMINATION: He is afebrile, pulse 60, respirations 19, BP 154/54. CV: Regular rate and rhythm. Lungs: Faint crackles in the left base. Abdomen: Soft, nontender, with active bowel sounds. No hepatosplenomegaly. No abdominal bruits. ASSESSMENT AND PLAN: 1. Chronic respiratory failure with community-acquired pneumonia. Clinically, he is doing well. We will continue intravenous Levaquin. I anticipate that we will transition him to oral Levaquin as an outpatient for a total of 10 days at the time of discharge to [facility]. 2. 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 Blood sugars look much better on the increased dosage of Novolin 70/30, 15 units subcutaneously twice a day. 3. Hypertension. Blood pressure is too high. I suspect that the increased dosage of midodrine has increased his blood pressure. I will increase the losartan to 100 mg daily. cc: John Madrigal MD
[2019-04-21] MEDS: LEVAQUIN 250 MG/D5W 250 MG/50 ML IVPB IV SCH (12:01)
[2019-04-21] MEDS: TYLENOL PO PRN ×2 (13:19→20:35)
[2019-04-21] MEDS: PROTONIX PO SCH (20:35)
[2019-04-21] MEDS: LOVENOX SUBQ SCH (20:35)
[2019-04-22] MEDS: HUMALOG SUBQ SCH ×4 (06:21→21:26)
[2019-04-22] MEDS: NOVOLOG MIX 70/30 SUBQ SCH ×2 (06:30→16:53)
[2019-04-22] MEDS: SYNTHROID PO SCH (06:31)
[2019-04-22] MEDS: COZAAR PO SCH (08:16)
[2019-04-22] MEDS: CRESTOR PO SCH (08:16)
[2019-04-22] MEDS: KLOR-CON PO SCH (08:17)
[2019-04-22] MEDS: ASPIRIN PO SCH (08:17)
[2019-04-22] MEDS: DEMADEX PO SCH ×2 (08:17→21:23)
[2019-04-22] MEDS: RANEXA PO SCH ×2 (08:17→21:23)
[2019-04-22] MEDS: PROAMATINE PO SCH ×3 (08:17→16:53)
[2019-04-22] MEDS: IMDUR PO SCH (08:17)
[2019-04-22] MEDS: TOPROL XL PO SCH ×2 (08:17→21:24)
[2019-04-22] MEDS: LEVAQUIN PO SCH (08:41)
[2019-04-22 10:02] LABS: HEMATOCRIT 28.7 % (42.0-52.0); HEMOGLOBIN 8.7 g/dL (14.0-18.0); MCH 27.2 PG (27-31); MCHC 30.3 g/dL (33-37); MCV 89.7 FL (81-99); MPV 10.2 FL (7.4-10.4); RBC 3.2 XMIL (4.7-6.1); RDW 16.5 % (11.5-14.5); WBC 7.13 X1000 (4.8-10.8)
[2019-04-22 10:16] LABS: CALCIUM 8.6 mg/dL (8.8-10.2); CREATININE 1.4 mg/dL (0.7-1.2); POTASSIUM 3.9 mmol/L (3.5-5.1)
--- NOTE | 2019-04-22 11:41 | Diag Imaging Result Doc PS360 ---
EXAM: CHEST-2 VIEWS HISTORY: pneumonia TECHNIQUE: Two views COMPARISON: 04/19/2019 FINDINGS: There are infiltrates in the mid lower left lung. These are similar to the prior exam. The sternal wires, surgical clips, and a right-sided pacemaker. The heart is mildly prominent. Small pleural effusions. IMPRESSION: No interval improvement. Electronically signed by Stanton George 04/22/2019 11:39 AM
--- NOTE | 2019-04-22 13:04 | PROGRESS NOTE ---
DATE: 04/22/2019 SUBJECTIVE: Mr. Amaya has a history of hypertension. His blood pressure is still fluctuating. He denies any chest pain, palpitations, or anginal equivalents. He had mild dyspnea during the night, but his O2 saturations have ranged from 94% to 99% on 2.5 liters of O2. He chronically wears O2 at 2.5 liters per nasal cannula. His chest x-ray showed a left lower lobe infiltrate. There was no significant edema since increasing the dosage of Demadex. He has had several episodes of hypoglycemia. OBJECTIVE: Vital Signs: Temperature 98.1 degrees, pulse 62, respirations 15, blood pressure 177/65. Cardiovascular: Regular rate and rhythm. Lungs: Faint crackles in the left base. Abdomen: Soft, nontender with active bowel sounds. Extremities: Without edema. ASSESSMENT AND PLAN: 1. Hypertension. His blood pressure is a little bit too high. I am going to add amlodipine 2.5 mg daily. 2. 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 I will reduce the Humalog 70/30 to 10 units subcutaneously twice daily. We will continue pattern sugars, Humulin R sliding scale, and an 1800 calorie ADA diet. 3. Community-acquired pneumonia. We will transition him to oral Levaquin. cc: John Madrigal MD
[2019-04-22] MEDS: NORVASC PO SCH (13:26)
[2019-04-22] MEDS: ROCALTROL PO SCH (13:27)
[2019-04-22] MEDS: PROTONIX PO SCH (21:23)
[2019-04-22] MEDS: LOVENOX SUBQ SCH (21:24)
[2019-04-23] MEDS: SYNTHROID PO SCH (06:25)
[2019-04-23] MEDS: NOVOLOG MIX 70/30 SUBQ SCH (06:25)
[2019-04-23] MEDS: HUMALOG SUBQ SCH (06:28)
[2019-04-23 08:18] VITALS: BP 152/59
[2019-04-23] MEDS: TOPROL XL PO SCH (08:21)
[2019-04-23] MEDS: RANEXA PO SCH (08:21)
[2019-04-23] MEDS: NORVASC PO SCH (08:22)
[2019-04-23] MEDS: COZAAR PO SCH (08:22)
[2019-04-23] MEDS: KLOR-CON PO SCH (08:22)
[2019-04-23] MEDS: DEMADEX PO SCH (08:22)
[2019-04-23] MEDS: PROAMATINE PO SCH (08:22)
[2019-04-23] MEDS: CRESTOR PO SCH (08:22)
[2019-04-23] MEDS: ASPIRIN PO SCH (08:22)
[2019-04-23] MEDS: IMDUR PO SCH (08:22)
[2019-04-23] MEDS: LEVAQUIN PO SCH (08:22)
--- NOTE | 2019-04-23 09:50 | DISCHARGE SUMMARY ---
ADMISSION DATE: 04/14/2019 DISCHARGE DATE: 04/23/2019 DISCHARGE DIAGNOSES: 1. Syncopal episode secondary to orthostatic hypotension. 2. Orthostatic hypotension secondary to dysautonomia. 3. Community-acquired bacterial pneumonia. 4. Chronic respiratory failure with hypoxia. 5. Chronic congestive heart failure secondary to systolic dysfunction. 6. Atherosclerotic heart disease of the [place] coronary arteries. 7. 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 8. Mixed hyperlipidemia. DISCHARGE INSTRUCTIONS: The patient will be transferred to [facility] in [place], [place], in order to undergo short term rehab. ACTIVITY: As tolerated. DIET: An 1800 calorie ADA diet. MEDICATIONS: Amlodipine 2.5 mg daily, aspirin 81 mg daily, Rocaltrol 0.25 mcg Monday, Monday, Monday, NovoLog 70/30 at 10 units subcutaneously b.i.d., Imdur were 60 mg daily, levofloxacin 250 mg daily for 5 days, levothyroxine 50 mcg daily, losartan 100 mg daily, metoprolol-XL 50 mg b.i.d., midodrine 10 mg t.i.d., pantoprazole 40 mg daily, potassium chloride 10 mEq daily, Ranexa 500 mg b.i.d., Crestor 20 mg every night at bedtime, Demadex 20 mg b.i.d. PHYSICAL EXAMINATION: General: This is an elderly, frail 79-year-old gentleman in no apparent distress. Vital Signs: He is afebrile. Pulse 60, respirations 18, BP 139/56. Cardiovascular: Regular rate and rhythm. Lungs: Faint crackles in the left base. Abdomen: Soft and nontender with active bowel sounds. Extremities: Trace ankle edema. HISTORY AND HOSPITAL COURSE: Mr. Oren Amaya was admitted to [facility] for evaluation of syncopal episodes. He was noted to be markedly orthostatic. The patient has a longstanding history of chronic orthostatic hypotension secondary to dysautonomia. We initially increased the midodrine to 10 mg t.i.d., continued metoprolol-XL 50 mg b.i.d., but reduced the dosage of losartan to 50 mg daily. Orthostatic vital signs were obtained every shift, and the orthostasis resolved with the medication changes He has a history of chronic congestive heart failure secondary to systolic dysfunction. He wears O2 at 2.5 L per nasal cannula continuously. The patient was maintained on a salt and fluid restricted diet and was maintained on routine doses of Demadex. During his hospitalization he became confused and disoriented. We felt that he had an underlying metabolic encephalopathy. Chest x-ray showed a left lower lobe pneumonia. The patient was treated with intravenous Levaquin and nebulizer treatments. His pneumonia improved significantly. He returned to his baseline neurologically. His cough and pleuritic chest pain resolved. He will complete an additional 5 day course of oral Levaquin 250 mg daily as an outpatient. He has a history of type 2 insulin dependent diabetes mellitus complicated by polyneuropathy. We adjusted his dosage of insulin during his hospitalization. He was continued on an 1800 calorie ADA diet. He was maintaining blood sugars in the range of 103 to 132 on NovoLog 70/30 at 10 units subcutaneously b.i.d. We are going to make arrangements for him to have a semi-electric bed at home following discharge. He has a history of peripheral neuropathy. He has fallen frequently in spite of using a walker. Having a semi-electric bed which will enable him to lower and raise the bed will help him to be able to transfer in and out of bed in an independent manner while alleviating stress on him. I also believe that he would benefit from a semi-electric bed because of his underlying heart failure. He does have significant congestive heart failure. The bed will enable him to reposition himself easily in the event of increasing shortness of breath where he needs to sit up or to raise his legs to improve fluid return to the heart Having reached maximum hospital benefit, the patient was discharged in stable condition. cc: John Madrigal MD
== END 2019-04-23 13:02 | DRG 91 ==
LOC: SUPCPDRO → ED 17:46 → SUPCPDRO 21:26 → 2N 21:26 → SUATTDRO 21:26 → 2N 21:48
PROVIDERS: ADMIT Internal Medicine; ATTEND Internal Medicine